=== PATIENT | female | born 1995 | race Two or more races ===

== ENCOUNTER 2017-03-14 10:35 | Emergency (ER) | payer SELFPAY ==
[~2017-03-14] VITALS: Ht 162.6 cm; Wt 90.7 kg
--- NOTE | 2017-03-14 11:01 | PHYS DOC ---
Adult General Chief Complaint Chief Complaint: VOMITING IN HPI HPI Patient is a 21 year old F who presents with cough and nausea vomiting for the past 3 weeks. Patient states that over the past 3 weeks she's had increasing crossing shortness of breath with associated nausea and vomiting. Patient states that week ago she saw a physician at [facility] in which gave her a inhaler and told her that her symptoms would get better within a day or 2 and they have not. Patient returns today for increased nausea and vomiting and some mild generalized abdominal tenderness. Patient states she vomited this morning. Patient states her breathing has improved. Patient denies any fevers. Patient denies any . Patient is no other complaints. Review of Systems Review of Systems GEN: Denies fevers, chills, sweats HEENT: Denies blurred vision, sore throat CV: Denies chest pain RESP: Cough GI: n/v with abdominal tenderness NEURO: Denies confusion, dizziness MSK: Denies weakness, joint pain/swelling Allergies Allergies Allergies Coded Allergies Type Severity Reaction Last Updated Verified No Known Drug Allergies 03/14/17 No Physical Exam Physical Exam GEN.: No apparent distress. Alert and oriented. HEENT: Head is normocephalic, atraumatic NECK: Supple. LUNGS: CTAB. HEART: RRR, S1, S2 present. Peripheral pulses intact ABDOMEN: Soft, nontender, no reproducible abdominal pain on exam in the emergency room. Positive bowel sounds. EXTREMITIES: Without any cyanosis. NEUROLOGIC: Normal speech, normal tone PSYCHIATRIC: Normal affect, normal mood. SKIN: No ulcerations Current Patient Data Vital Signs Vital Signs Date Time Temp Pulse Resp B/P (MAP) Pulse Ox O2 Delivery O2 Flow Rate FiO2 03/14/17 10:54 98.6 82 16 135/98 (110) 97 Room Air 98.6 Lab Values Laboratory Tests Test 03/14/17 09:54 03/14/17 10:55 03/14/17 12:00 POC Urine HCG, Qualitative Hcg negative (Negative) Urine Collection Type Void Urine Color Yellow Urine Clarity Clear Urine pH 6.5 Urine Specific [place] >=1.030 Urine Protein Negative mg/dL (NEG-TRACE) Urine Glucose (UA) Negative mg/dL (NEG) Urine Ketones (Stick) Negative mg/dL (NEG) Urine Blood Negative (NEG) Urine Nitrite Negative (NEG) Urine Bilirubin Negative (NEG) Urine Urobilinogen Dipstick 1.0 mg/dL (0.2 mg/dL) Urine Leukocyte Esterase Moderate (NEG) Urine RBC Rare /HPF (0-2) Urine WBC 5-10 /HPF (0-4) Urine Squamous Epithelial Cells Mod /LPF Urine Bacteria Moderate /HPF (0-FEW) Urine Mucus Mod /LPF White Blood Count 9.8 x10^3/uL (4.0-11.0) Red Blood Count 4.97 x10^6/uL (3.50-5.40) Hemoglobin 12.9 g/dL (12.0-15.5) Hematocrit 39.9 % (36.0-47.0) Mean Corpuscular Volume 80 fL (79-100) Mean Corpuscular Hemoglobin 26 pg (25-35) Mean Corpuscular Hemoglobin Concent 32 g/dL (31-37) Red Cell Distribution Width 14.1 % (11.5-14.5) Platelet Count 277 x10^3/uL (140-400) Neutrophils (%) (Auto) 64 % (31-73) Lymphocytes (%) (Auto) 21 % (24-48) L Monocytes (%) (Auto) 6 % (0-9) Eosinophils (%) (Auto) 8 % (0-3) H Basophils (%) (Auto) 1 % (0-3) Neutrophils # (Auto) 6.2 x10^3uL (1.8-7.7) Lymphocytes # (Auto) 2.0 x10^3/uL (1.0-4.8) Monocytes # (Auto) 0.6 x10^3/uL (0.0-1.1) Eosinophils # (Auto) 0.8 x10^3/uL (0.0-0.7) H Basophils # (Auto) 0.1 x10^3/uL (0.0-0.2) Sodium Level 143 mmol/L (136-145) Potassium Level 3.8 mmol/L (3.5-5.1) Chloride Level 105 mmol/L (98-107) Carbon Dioxide Level 31 mmol/L (21-32) Anion Gap 7 (6-14) Blood Urea Nitrogen 7 mg/dL (7-20) Creatinine 0.6 mg/dL (0.6-1.0) Estimated GFR (Cockcroft-Gault) 128.8 BUN/Creatinine Ratio 12 (6-20) Glucose Level 97 mg/dL (70-99) Calcium Level 9.2 mg/dL (8.5-10.1) Total Bilirubin 0.3 mg/dL (0.2-1.0) Aspartate Amino Transferase (AST) 17 U/L (15-37) Alanine Aminotransferase (ALT) 27 U/L (14-59) Alkaline Phosphatase 92 U/L (46-116) Total Protein 7.6 g/dL (6.4-8.2) Albumin 3.7 g/dL (3.4-5.0) Albumin/Globulin Ratio 0.9 (1.0-1.7) L Laboratory Tests 03/14/17 12:00 Laboratory Tests 03/14/17 12:00 EKG EKG 1152: EKG shows normal sinus rhythm rate of 71 no STEMI [] Radiology/Procedures Radiology/Procedures CXR: NAD[] Course & Med Decision Making Course & Med Decision Making Pertinent Labs and Imaging studies reviewed. (See chart for details) ED course: Patient was seen and examined emergency room CBC, CMP, UA, urine., Chest x-ray, EKG were ordered 1305: Patient was reevaluated when she is feeling much better updated patient on results and plan to treat for urinary tract infection. Patient is stable for discharge. Recommended short-term follow-up with PCP in one to 2 days. MDM: After reviewing the chart, CC/HPI/PMH, physical exam, [lab results], [ radiological results], I do not believe the patient has emergent medical condition warranting further workup and/or admission at this time. I believe the patient has a non-complicated UTI that we treated as outpatient with oral antibiotics. Patient is stable for discharge. Additional verbal discharge instructions were provided to the patient and that if symptoms get worse or any new symptoms arise that are worrisome to the patient she is to return to the emergency room immediately [] Dragon Disclaimer Dragon Disclaimer This electronic medical record was generated, in whole or in part, using a voice recognition dictation system. Departure Departure Impression: Primary Impression: UTI (urinary tract infection) Additional Impression: Nausea and vomiting Disposition: 01 HOME, SELF-CARE Condition: IMPROVED Patient Instructions: Urinary Tract Infection Additional Instructions: Please follow up with your family doctor next one to 2 days and return if symptoms increase Scripts Cephalexin (KEFLEX) 250 Mg Capsule 1 CAP PO TID for 5 Days, #15 CAP Prov: BRADEN FELDMAN DO 03/14/17 Ondansetron (ZOFRAN ODT) 4 Mg Tab.rapdis 1 TAB SL Q8HRS, #10 TAB Prov: BRADEN FELDMAN DO 03/14/17 Problem Qualifiers BRADEN FELDMAN DO Mar 14, 2017 11:01
[2017-03-14 11:06] LABS: BILIRUBIN,URINE NEGATIVE (NEG); GLUCOSE,URINE NEGATIVE (NEG); NITRITE,URINE NEGATIVE (NEG); PH,URINE 6.5; PROTEIN,URINE NEGATIVE (NEG-TRACE)
[2017-03-14 11:23] LABS: BACTERIA,URINE MODERATE /HPF (0-FEW); RBC,URINE RARE /HPF (0-2)
[2017-03-14 11:24] LABS: SQUAMOUS EPITHELIAL CELL,UR MOD /LPF
--- NOTE | 2017-03-14 11:56 | RAD ---
Exam performed: 2 views of the chest. Indication: Shortness of air, cough and vomiting for 3 weeks Date of Service:03/14/2017 12:56 PM . Comparison : None available. Findings: PA and lateral radiographs of the chest reveal a normal cardiomediastinal contour. The lungs are clear. No pleural fluid is seen. The visualized osseous structures are unremarkable. Impression: Radiographically normal chest.
[2017-03-14 12:11] LABS: BASO # 0.1 x10^3/uL (0.0-0.2); BASO % 1 % (0-3); EOS % 8 % (0-3); HEMATOCRIT 39.9 % (36.0-47.0); HEMOGLOBIN 12.9 g/dL (12.0-15.5); LYMPH % 21 % (24-48); MEAN CORPUSCULAR HEMOGLOBIN 26 pg (25-35); MEAN CORPUSCULAR HGB CONC 32 g/dL (31-37); MEAN CORPUSCULAR VOLUME 80 fL (79-100); MONO % 6 % (0-9); NEUT % 64 % (31-73); PLATELET COUNT 277 x10^3/uL (140-400); RED BLOOD COUNT 4.97 x10^6/uL (3.50-5.40); RED CELL DISTRIBUTION WIDTH 14.1 % (11.5-14.5); WHITE BLOOD COUNT 9.8 x10^3/uL (4.0-11.0)
[2017-03-14 12:15] LABS: CALCIUM 9.2 mg/dL (8.5-10.1); CREATININE 0.6 mg/dL (0.6-1.0); GFR 128.8; POTASSIUM 3.8 mmol/L (3.5-5.1)
[2017-03-14 12:20] LABS: ALBUMIN 3.7 g/dL (3.4-5.0); ALBUMIN/GLOBULIN RATIO 0.9 (1.0-1.7); TOTAL BILIRUBIN 0.3 mg/dL (0.2-1.0); TOTAL PROTEIN 7.6 g/dL (6.4-8.2)
--- NOTE | 2017-03-14 13:03 | EKG ---
[facility] [address] [place] [address] Test Date: 2017-03-14 Test Time: 11:26:05 Pat Name: PARUL ALVAREZ Department: Room: Gender: F Pattern Attendant: : 1995 Requested By: BRADEN FELDMAN Order Number: [id number] Reading MD: Measurements Intervals [place] Rate: 71 P: 24 TN: 138 QRS: 16 QRSD: 84 T: 34 QT: 354 QTc: 389 Interpretive Statements SINUS RHYTHM NORMAL ECG RI6.01 Unconfirmed report No previous ECG available for comparison
[2017-03-14] MEDS ORDERED: CEPH-263 PO (13:13)
[2017-03-14] MEDS ORDERED: ONDA4TAB10 SL (13:13)
[2017-03-14 13:25] VITALS: BP 132/58
== END 2017-03-14 13:33 | disposition home or self-care (01) ==
LOC: ER 10:35
DX: N39.0 Urinary tract infection, site not specified (principal); R05 Cough; R06.02 Shortness of breath
CPT/HCPCS: 36415; 71020; 80053; 81001; 81025; 85025; 87086; 93005; 99285-25

== ENCOUNTER 2017-03-23 18:46 | Emergency (ER) | payer SELFPAY ==
[~2017-03-23] VITALS: Ht 157.5 cm; Wt 90.7 kg
[~2017-03-23 18:46] MED LIST: CEPH-263 PO; ONDA4TAB10 SL
[2017-03-23 20:05] VITALS: BP 138/72
[2017-03-23] MEDS ORDERED: PROAIR HFA8.5 GM INH (20:23)
[2017-03-23] MEDS ORDERED: METH4TAB2 PO (20:23)
--- NOTE | 2017-03-23 20:23 | PHYS DOC ---
Past Medical History Past Medical History: No Pertinent History Past Surgical History: Appendectomy Alcohol Use: None Drug Use: None Adult General Chief Complaint Chief Complaint: NAUSEA/VOMITING/DIARRHA HPI HPI Patient is a 21 year old E male presents to the emergency department with a one -month history of cough. She states that often she coughs so hard she vomits. She has complaints of throat irritation. She reports no fever, no abdominal pain , no chest pain, no urinary symptoms. Review of Systems Review of Systems Constitutional: Denies fever or chills [] Eyes: Denies change in visual acuity, redness, or eye pain [] HENT: Denies nasal congestion or sore throat [] Respiratory: Cough without shortness of breath Cardiovascular: No additional information not addressed in HPI [] GI: Denies abdominal pain, nausea, vomiting, bloody stools or diarrhea [] : Denies dysuria or hematuria [] Musculoskeletal: Denies back pain or joint pain [] Integument: Denies rash or skin lesions [] Neurologic: Denies headache, focal weakness or sensory changes [] Endocrine: Denies polyuria or polydipsia [] Allergies Allergies Allergies Coded Allergies Type Severity Reaction Last Updated Verified No Known Drug Allergies 03/14/17 No Physical Exam Physical Exam Constitutional: Well developed, well nourished, no acute distress, non-toxic appearance. [] HENT: Normocephalic, atraumatic, bilateral external ears normal, oropharynx moist, no oral exudates, nose normal. [] Eyes: PERRLA, EOMI, conjunctiva normal, no discharge. [] Neck: Normal range of motion, no tenderness, supple, no stridor. [] Cardiovascular:Heart rate regular rhythm, no murmur [] Lungs & Thorax: Bilateral breath sounds clear to auscultation [] Abdomen: Bowel sounds normal, soft, no tenderness, no masses, no pulsatile masses. [] Skin: Warm, dry, no erythema, no rash. [] Back: No tenderness, no CVA tenderness. [] Extremities: No tenderness, no cyanosis, no clubbing, ROM intact, no edema. [] Neurologic: Alert and oriented X 3, normal motor function, normal sensory function, no focal deficits noted. [] Psychologic: Affect normal, judgement normal, mood normal. [] Current Patient Data Vital Signs Vital Signs Date Time Temp Pulse Resp B/P (MAP) Pulse Ox O2 Delivery O2 Flow Rate FiO2 03/23/17 20:05 97.9 84 16 99 Room Air 97.9 EKG EKG [] Radiology/Procedures Radiology/Procedures [] Course & Med Decision Making Course & Med Decision Making Pertinent Labs and Imaging studies reviewed. (See chart for details) []Strep negative Patient was advised she has upper respiratory symptoms. She she's over-the- counter cough and cold medications. I have prescribed prednisone as I believe some of her symptoms or allergic in nature. Dragon Disclaimer Dragon Disclaimer This electronic medical record was generated, in whole or in part, using a voice recognition dictation system. Departure Departure Impression: Primary Impression: URI (upper respiratory infection) Disposition: HOME, SELF-CARE Condition: STABLE Referrals: NO PCP (PCP) [facility] Patient Instructions: Upper Respiratory Infection, Adult Additional Instructions: [id number] Laura as labeled and as needed for symptom management Scripts Methylprednisolone (MEDROL) 4 Mg Tab.ds.pk 1 PKG PO DAILY, #1 PKG take as directed Prov: ALONA HUMMEL APRN 03/23/17 Albuterol Sulfate (PROAIR HFA INHALER) 8.5 Gm Hfa.aer.ad 1 PUFF INH PRN Q6HRS Y for SHORTNESS OF BREATH, #1 INHALER 0 Refills Prov: ALONA HUMMEL APRN 03/23/17 Problem Qualifiers Primary Impression: URI (upper respiratory infection) URI type: unspecified viral URI Qualified Codes: J06.9 - Acute upper respiratory infection, unspecified; B97.89 - Other viral agents as the cause of diseases classified elsewhere ALONA HUMMEL APRN Mar 23, 2017 20:23
[2017-03-25 10:16] LABS: NEGATIVE OBC STREP NEG; POSITIVE OBC STREP POS
== END 2017-03-23 21:17 | disposition home or self-care (01) ==
LOC: ER 18:46
DX: J06.9 Acute upper respiratory infection, unspecified (principal); B97.89 Other viral agents as the cause of diseases classified elsewhere
CPT/HCPCS: 87070; 87880; 99284

== ENCOUNTER 2017-06-08 17:00 | Emergency (ER) | payer OTHER ==
[~2017-06-08] VITALS: Ht 157.5 cm; Wt 90.7 kg
[~2017-06-08 17:00] MED LIST changes: +METH4TAB2 PO; +PROAIR HFA8.5 GM INH
[2017-06-08 17:38] VITALS: BP 150/75
--- NOTE | 2017-06-09 01:49 | PHYS DOC ---
Past Medical History Past Medical History: No Pertinent History Past Surgical History: Appendectomy Alcohol Use: None Drug Use: None Adult General Chief Complaint Chief Complaint: MECHANICAL FALL HPI HPI Patient is a 21 year old female who presents with pain in her shoulder, knee and ankle after falling at work several days ago. She had kicked a crate out of her way when her foot became entangled causing her to fall. She struck the safe with her shoulder as she fell and landed on her knee, twisting her ankle. She states that the pain has not resolved and she was told by her boss to get checked out medically today. Review of Systems Review of Systems Constitutional: Denies fever or chills [] Respiratory: Denies cough or shortness of breath [] Cardiovascular: No additional information not addressed in HPI [] Musculoskeletal: See history of present illness Integument: Denies rash or skin lesions [] Neurologic: Denies headache, focal weakness or sensory changes [] Endocrine: Denies polyuria or polydipsia [] All other systems were reviewed and found to be within normal limits, except as documented in this note. Allergies Allergies Allergies Coded Allergies Type Severity Reaction Last Updated Verified No Known Drug Allergies 03/14/17 No Physical Exam Physical Exam Constitutional: Well developed, well nourished, no acute distress, non-toxic appearance. [] Neck: Normal range of motion, no tenderness, supple, no stridor. [] Cardiovascular:Heart rate regular rhythm, no murmur [] Lungs & Thorax: Bilateral breath sounds clear to auscultation [] Abdomen: Bowel sounds normal, soft, no tenderness, no masses, no pulsatile masses. [] Skin: Warm, dry, no erythema, no rash. [] Back: Pain with palpation to the left shoulder, there is no bruising or contusions noted, there is no gross deformity Extremities: tenderness to left knee and ankle, no cyanosis, no clubbing, ROM intact, no edema. [] Neurologic: Alert and oriented X 3, normal motor function, normal sensory function, no focal deficits noted. [] Psychologic: Affect normal, judgement normal, mood normal. [] Current Patient Data Vital Signs Vital Signs Date Time Temp Pulse Resp B/P (MAP) Pulse Ox O2 Delivery O2 Flow Rate FiO2 06/08/17 17:38 98.1 94 16 100 Room Air 98.1 EKG EKG [] Radiology/Procedures Radiology/Procedures []There are no fractures or gross deformities noted on the patient's x-rays. Course & Med Decision Making Course & Med Decision Making Pertinent Labs and Imaging studies reviewed. (See chart for details) []1. Contusions The patient was given a work excuse for today. She is to take ibuprofen or Tylenol for continued pain. She is to follow-up with her primary care or the Workmen's Compensation. physician as needed. She may return to the ED if worsening. Dragon Disclaimer Dragon Disclaimer This electronic medical record was generated, in whole or in part, using a voice recognition dictation system. Departure Departure Impression: Primary Impression: Multiple contusions Disposition: 01 HOME, SELF-CARE Condition: STABLE Patient Instructions: Contusions-SportsMed Additional Instructions: Follow-up with your primary care provider in one week if not improving or follow -up with your workman's comp physician. Please take ibuprofen or Tylenol for pain. DON SHANNON APRN Jun 09, 2017 01:49
--- NOTE | 2017-06-09 08:55 | RAD ---
ANKLE LEFT 3V History:fell at work, pain Comparison: None Findings:3 views of the left ankle are submitted. No acute fracture or dislocation is identified. Impression: 1.No acute abnormality is identified.
--- NOTE | 2017-06-09 08:56 | RAD ---
SHOULDER 2+V LEFT History:fell at work, pain Comparison: None Findings:3 views left shoulder are submitted. No acute fracture or dislocation is identified. Impression: 1.No acute abnormality is identified.
--- NOTE | 2017-06-09 08:56 | RAD ---
KNEE LEFT 3V History:fell at work, pain Comparison: None Findings:3 views of the left knee are submitted. No acute fracture, dislocation, significant joint effusion is identified. Impression: 1.No acute osseous abnormality is identified.
== END 2017-06-08 18:55 | disposition home or self-care (01) ==
LOC: ER 17:00
DX: S40.012A Contusion of left shoulder, initial encounter (principal); S90.02XA Contusion of left ankle, initial encounter; S80.02XA Contusion of left knee, initial encounter; X50.9XXA Other and unspecified overexertion or strenuous movements or postures, initial encounter; Y93.89 Activity, other specified; Y99.8 Other external cause status; Y92.89 Other specified places as the place of occurrence of the external cause
CPT/HCPCS: 73030; 73562; 73610; 99284

== ENCOUNTER 2019-12-30 15:36 | Emergency (ER) | payer OTHER ==
[~2019-12-30] VITALS: Ht 160 cm; Wt 100.0 kg
[~2019-12-30 15:36] MED LIST changes: +ALBU2.5V8 INH; -PROAIR HFA8.5 GM INH
[2019-12-30 16:39] VITALS: BP 141/83
[2019-12-30] MEDS ORDERED: IV NORMAL SALINE 1000ML BAG 1,000 ML IV ONE (17:00)
[2019-12-30] MEDS ORDERED: DEXAMETHASONE SOD PHOS 4 MG/ML VIAL IVP ONE (17:00)
--- NOTE | 2019-12-30 17:00 | PHYS DOC ---
Past Medical History Past Medical History: No Pertinent History Past Surgical History: Appendectomy Smoking Status: Never Smoker Alcohol Use: None Drug Use: None General Adult EDM: Chief Complaint: COUGH HPI: HPI: Patient is a 24 year old [f__sex] who presents with [] Review of Systems: Review of Systems: Constitutional: Denies fever or chills. [] Eyes: Denies change in visual acuity. [] HENT: Denies nasal congestion or sore throat. [] Respiratory: Denies cough or shortness of breath. [] Cardiovascular: Denies chest pain or edema. [] GI: Denies abdominal pain, nausea, vomiting, bloody stools or diarrhea. [] : Denies dysuria. [] Musculoskeletal: Denies back pain or joint pain. [] Integument: Denies rash. [] Neurologic: Denies headache, focal weakness or sensory changes. [] Endocrine: Denies polyuria or polydipsia. [] Lymphatic: Denies swollen glands. [] Psychiatric: Denies depression or anxiety. [] Heart Score: Risk Factors: Risk Factors: DM, Current or recent (<one month) smoker, HTN, HLP, family history of CAD, obesity. Risk Scores: Score 0 - 3: 2.5% MACE over next 6 weeks - Discharge Home Score 4 - 6: 20.3% MACE over next 6 weeks - Admit for Clinical Observation Score 7 - 10: 72.7% MACE over next 6 weeks - Early Invasive Strategies Allergies: Allergies: Allergies Coded Allergies Type Severity Reaction Last Updated Verified No Known Drug Allergies 03/14/17 No Physical Exam: PE: Constitutional: Well developed, well nourished, no acute distress, non-toxic appearance. [] HENT: Normocephalic, atraumatic, bilateral external ears normal, oropharynx moist, no oral exudates, nose normal. [] Eyes: PERRLA, EOMI, conjunctiva normal, no discharge. [] Neck: Normal range of motion, no tenderness, supple, no stridor. [] Cardiovascular:Heart rate regular rhythm, no murmur [] Lungs & Thorax: Bilateral breath sounds clear to auscultation [] Abdomen: Bowel sounds normal, soft, no tenderness, no masses, no pulsatile masses. [] Skin: Warm, dry, no erythema, no rash. [] Back: No tenderness, no CVA tenderness. [] Extremities: No tenderness, no cyanosis, no clubbing, ROM intact, no edema. [] Neurologic: Alert and oriented X 3, normal motor function, normal sensory function, no focal deficits noted. [] Psychologic: Affect normal, judgement normal, mood normal. [] EKG: EKG: [] Radiology/Procedures: Radiology/Procedures: [] Course & Med Decision Making: Course & Med Decision Making Pertinent Labs and Imaging studies reviewed. (See chart for details) COVID-19 CRITERIA: The patient was evaluated during the global COVID-19 pandemic, and that diagnosis was suspected/considered upon their initial presentation. Their evaluation, treatment and testing was consistent with current guidelines for patients who present with complaints or symptoms that may be related to COVID-19. Dragon Disclaimer: Dragon Disclaimer: This electronic medical record was generated, in whole or in part, using a voice recognition dictation system. Departure Departure Impression: Primary Impression: Viral pneumonia Additional Impression: Suspected 2019 novel coronavirus infection Disposition: HOME, SELF-CARE Condition: STABLE Referrals: NO PCP (PCP) Patient Instructions: Incentive Spirometer, Pneumonia, Adult, [id number], Viral Syndrome Additional Instructions: Definicin Se le realiz la prueba de deteccin del COVID-19 o se le diagnostic dicha enfermedad. Es deepali infeccin ocasionada por un nuevo tipo de coronavirus. En la mayora de los casos, el COVID-19 provoca sntomas similares a los del resfriado. En algunas personas, puede ocasionar sntomas ms graves, marcela problemas respiratorios. No existe un tratamiento para el virus COVID-19. El cuerpo elimina la infeccin con el tiempo. El cuidado personal ayuda a aliviar el malestar. Pasos que debe seguir 1. Cuidados personales Descanse cuando sea necesario. Los hbitos saludables pueden ayudarlo a sentirse mejor. Algunas medidas para lograr cambios incluyen lo siguiente: - Elija alimentos saludables, marcela frutas y verduras. Sue abundante cantidad de agua kaity todo el da. - Duerma pro por la noche. - Si fuma, intente no hacerlo. [place] ayudar a mejorar la respiracin. - Evite el alcohol. 2. Mantenga sanos a los dems El virus puede contagiarse a otras personas. Cada vez que estornuda o tose, se liberan gotitas. Las gotitas pueden entrar en la boca, la nariz o los ojos de las personas que se encuentran cerca de usted y ocasionar la infeccin. Para reducir las probabilidades de contagiar el virus COVID-19 a otros, tenga en cuenta lo siguiente: - Qudese en casa el tiempo que el mdico se lo indique. Es posible que deba quedarse en casa hasta que la enfermedad desaparezca. Salga nicamente para recibir atencin mdica o en genia de urgencia. - Evite las reas pblicas, los eventos o el transporte pblico. No reanude las actividades laborales o escolares hasta que el mdico lo autorice. - Llame previamente si necesita asistir a un centro mdico. Avise que es posible que haya contrado COVID-19. [place] ayudar a que le indiquen adonde debe dirigirse. Jazmyne pueden pedirle que use deepali mscara facial cuando vaya al consultorio. Si llama a los servicios de asistencia mdica de urgencias, avseles que es posible que haya contrado COVID-19. Mientras est en casa: - Evite el contacto directo con otras personas. Mantngase a deepali distancia aproximada de 2 metros. Si es posible, pasen la mayor parte del tiempo en leon separadas. - Use deepali mscara facial si estar en contacto directo con otras personas, por ejemplo, si compartir deepali habitacin o un vehculo. - Pida a alguien que limpie las superficies comunes de la casa. Limpie picaportes, mesadas y lavamanos con limpiadores domsticos todos los mike. - Al toser o estornudar, cbrase con un pauelo de papel. Despus de usarlo, deschelo de inmediato. Si no tiene un pauelo de papel, tosa o estornude en el pliegue del codo. - Lvese las joanie con frecuencia. Lvese las joanie despus de estornudar o toser. Lvese con agua y jabn kaity, al menos, 20 segundos. Si no dispone de agua y jabn, use un limpiador de joanie a base de alcohol. - No cocine para otros. Evite compartir objetos personales, marcela tenedores, cucharas o cepillos de dientes. - Mientras est enfermo, evite el contacto directo con las mascotas. No hay indicios de si el virus se transmite a las mascotas. Esta es deepali medida de seguridad que debe tenerse en cuenta hasta que se sepa ms acerca de pilo virus. El aislamiento puede ser frustrante. La interaccin social puede ayudar. Mantngase en contacto con amigos y familiares por telfono u otros medios tecnolgicos. Puede interactuar con otras personas en el hogar, oliver mantenga deepali distancia nava de aproximadamente 2 metros. Seguimiento Las pruebas para confirmar la presencia del COVID-19 pueden demorar algunos mike. Es posible que deba seguir los pasos mencionados anteriormente hasta que estn los resultados de las pruebas. Lo llamarn del consultorio mdico para saber si hernandez habido algn cambio en jorgensen alisa. Jazmyne le avisarn cuando pueda volver a estar cerca de otras personas. Problemas a los que debe estar atento Comunquese con el mdico si no se recupera segn lo previsto o si tiene problemas marcela los siguientes: - Dificultad para respirar - Dolor de pecho - Empeoramiento de los sntomas Si brenda que tiene deepali urgencia, llame a los servicios de asistencia mdica de urgencias de inmediato. As taken from [facility] Azithromycin (ZITHROMAX) 250 Mg Tablet 1 PKG PO UD, #6 TAB Take 2 tablets on day 1 and then 1 tablet each day for the next 4 days as directed Prov: MAREK HARDWICK DO 12/30/19 Albuterol Sulfate (Proair Hfa) 8.5 Gm Hfa.aer.ad 2 PUFF IH PRN Q4-6HRS PRN for wheezing for 21 Days, #1 INHALER 0 Refills Prov: MAREK HARDWICK DO 12/30/19 Justicifation of Admission Dx: Justifications for Admission: Justification of Admission Dx: N/A COVID-19 Assessment: COVID-19 Patient Risks: Age 65 or older: No Sign of co-morbidity: No Exp to person + for COVID: Yes Exp to PUI: No Travel from affected area: No Lower respiratory symptoms: Yes Fever: Yes PPE Use: Full PPE with N95 mask or PAPR: Yes MAREK HARDWICK DO Dec 30, 2019 17:00
[2019-12-30] MEDS ORDERED: AZIT250T PO (17:54)
[2019-12-30] MEDS ORDERED: ALBU2.5V8 IH (17:54)
--- NOTE | 2019-12-30 17:57 | RAD ---
EXAM: Chest, single view. HISTORY: Cough. Suspected Covid 19. COMPARISON: None. FINDINGS: A frontal view of the chest is obtained. There is increased interstitial opacity within the bilateral mid and lower thorax. No consolidation, pleural effusion or pneumothorax is seen. There are relative decreased lung volumes. The heart is normal in size. IMPRESSION: Increased interstitial opacity with pleural mid and lower thorax possibly due to interstitial infiltrate. This may be superimposed on atelectasis given relative decreased lung volumes. Electronically signed by: Maria Isabel Buchanan MD (12/30/2019 5:53 PM) [facility]
[2019-12-30] MEDS ORDERED: DEXAMETHASONE 4 MG TABLET PO ONE (18:15)
== END 2019-12-30 18:36 | disposition home or self-care (01) ==
LOC: ER 15:36
DX: J12.9 Viral pneumonia, unspecified (principal); Z20.828 Contact with and (suspected) exposure to other viral communicable diseases
CPT/HCPCS: 71045; 99283; J7030; J8540